=== PATIENT | female | born 1980 | race Two or more races ===

== ENCOUNTER 2022-08-30 15:48 | Outpatient (CLI) | payer OTHER | END 2022-08-30 16:01 | disposition home or self-care (01) | LOC: RAD 15:48 | DX: M67.431 Ganglion, right wrist (principal) ==

== ENCOUNTER 2023-03-13 07:37 | Outpatient (CLI) | payer OTHER | END 2023-03-13 07:38 | disposition home or self-care (01) | LOC: LAB 07:37 | PROVIDERS: ATTEND Orthopaedic Surgery | DX: Z01.818 Encounter for other preprocedural examination (principal); D68.8 Other specified coagulation defects; N39.0 Urinary tract infection, site not specified; Z76.89 Persons encountering health services in other specified circumstances; I10 Essential (primary) hypertension; M67.431 Ganglion, right wrist; D64.89 Other specified anemias; E88.89 Other specified metabolic disorders; I49.8 Other specified cardiac arrhythmias; Z22.322 Carrier or suspected carrier of Methicillin resistant Staphylococcus aureus ==